=== PATIENT | female | born 1945 | race Caucasian/White ===

== ENCOUNTER 2019-12-10 10:01 | Outpatient (CLI) | payer MEDICARE, OTHER, SELFPAY ==
--- NOTE | 2019-12-10 10:08 | MM_ITS ---
WS: [id number] BILATERAL SCREENING DIGITAL MAMMOGRAM WITH CAD HISTORY: SCREENING COMPARISON: 11/02/2018, 04/10/2017 and 02/29/2016 Bilateral CC and MLO views submitted. Computer aided detection analyzed. Breast composition: There are scattered areas of fibroglandular density. No suspicious masses, microc alcifications or architectural distortion. Stable asymmetry in the central LEFT breast over multiple prior examinations. Benign calcifications. MM/[id number] IMPRESSION: BI-RADS: 2-Benign FOLLOW UP: 1 Year Follow-up
== END 2019-12-10 10:02 | disposition home or self-care (01) ==
LOC: RADSHAW 10:07
PROVIDERS: Family Provider Nurse Practitioner Family; Visit Provider Nurse Practitioner Family
DX: Z12.31 Encounter for screening mammogram for malignant neoplasm of breast (principal)
CPT/HCPCS: 77067

== ENCOUNTER 2020-12-15 14:59 | Outpatient (CLI) | payer MEDICARE, OTHER, SELFPAY ==
--- NOTE | 2020-12-15 15:07 | MM_ITS ---
WS: [id number] BILATERAL SCREENING DIGITAL MAMMOGRAM WITH CAD HISTORY: SCREENING COMPARISON: 12/10/2019, 11/02/2018 and 04/10/2017. Bilateral CC and MLO views submitted. Computer aided detection analyzed. Breast composition: The breasts are heterogeneously dense, which may obscure small masses. No suspici ous masses, microcalcifications or architectural distortion. There is an asymmetry in the central LEF T breast seen best on the CC projection posteriorly. 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 MM/[place] [id number] IMPRESSION: BI-RADS: 2-Benign FOLLOW UP: 1 Year Follow-up
== END 2020-12-15 15:00 | disposition home or self-care (01) ==
LOC: RADSHAW 15:06
PROVIDERS: PCP Nurse Practitioner Family; Visit Provider Nurse Practitioner Family
DX: Z12.31 Encounter for screening mammogram for malignant neoplasm of breast (principal)
CPT/HCPCS: 77067

== ENCOUNTER 2022-01-13 06:41 | Outpatient (CLI) | payer MEDICARE, OTHER, SELFPAY ==
--- NOTE | 2022-01-13 | US_ITS ---
WS: [id number] RIGHT UPPER QUADRANT ULTRASOUND HISTORY: ELEVATED LFT'S COMPARISON: 11/02/2018 Liver: 17.4 cm in length. Liver is mildly enlarged. Coarse echotexture throughout the liver. No mass or bile duct dilatation. Portal Vein: Normal hepatopetal flow with monophasic waveform. Gallbladder: Normally distended gallbladder with no stones or wall thickening. CBD: 0.5 cm Pancreas: Head and body are normal. Tail is obscured by bowel gas. Right kidney: 10.5 cm in length. Normal size kidney. Cortical cyst from the lower pole measures 1.1 x 1.4 x 1.5 cm. No solid mass. No obstruction. Aorta and IVC: Unremarkable abdominal aorta and IVC. No ascites. US/US abdomen limited [id number] IMPRESSION: 1. Normal gallbladder. 2. Mild hepatomegaly and mild hepatic steatosis. 3. No bile duct dilatation. 4. Simple cyst lower pole RIGHT kidney.
== END 2022-01-13 06:42 | disposition home or self-care (01) ==
LOC: RAD 06:42
PROVIDERS: PCP Nurse Practitioner Family; Visit Provider Nurse Practitioner Family
DX: R79.89 Other specified abnormal findings of blood chemistry (principal); R16.0 Hepatomegaly, not elsewhere classified; K76.0 Fatty (change of) liver, not elsewhere classified; N28.1 Cyst of kidney, acquired
CPT/HCPCS: 76705

== ENCOUNTER 2022-03-01 09:55 | Outpatient (CLI) | payer MEDICARE, OTHER, SELFPAY ==
--- NOTE | 2022-03-01 10:05 | MM_ITS ---
WS: [id number] BILATERAL 3D TOMOSYNTHESIS DIGITAL SCREENING MAMMOGRAPHY WITH CAD CLINICAL INFORMATION: SCREENING HISTORY: Screening mammogram. No current complaints. COMPARISON: December 15, 2020 TECHNIQUE: Bilateral CC and MLO views. FINDINGS: The breasts are composed of heterogeneous fibroglandular density tissue, which can limit the detectio n of small underlying mass lesions. Incidental punctate calcifications RIGHT breast. No suspicious ma ss, asymmetry, calcifications, or architectural distortion. No evidence of malignancy. MM/[place] [id number] IMPRESSION: BI-RADS: 2-Benign FOLLOW UP: 1 Year Follow-up Recommend return to annual screening mammography.
== END 2022-03-01 09:56 | disposition home or self-care (01) ==
LOC: RADSHAW 10:00
PROVIDERS: PCP Nurse Practitioner Family; Visit Provider Nurse Practitioner Family
DX: Z12.31 Encounter for screening mammogram for malignant neoplasm of breast (principal)
CPT/HCPCS: 77063; 77067

== ENCOUNTER 2022-10-25 07:56 | Outpatient (CLI) | payer MEDICARE, OTHER, SELFPAY ==
--- NOTE | 2022-10-25 08:08 | CT_ITS ---
WS: [id number] LDCT LUNG CANCER SCREENING TECHNIQUE: Noncontrast CT of the chest with coronal and sagittal reformatted images. CLINICAL INFORMATION: NICOTINE DEPENDENCE CIGARETTES COMPARISON: None. DLP: 65.23 mGy.cm DIvol: Mean CTDIvol: 1.60 (mGy) All CT scans at [facility] use at least one of these dose optimization techniques: automat ed exposure control; mA and/or kV adjustment per patient size (includes targeted exams where dose is matched to clinical indication); or iterative reconstruction. FINDINGS: Normal caliber thoracic aorta. No mediastinal or hilar lymphadenopathy. No axillary lymphadenopathy. Small hazy opacity LEFT upper lobe measuring 4 mm. No other suspicious pulmonary parenchymal opacitie s. Linear atelectasis both lower lobes and lingula. Adrenal glands are normal. Tiny esophageal hiatal hernia. . Hypertrophic changes thoracic spine. CT/CT lung screening [id number] IMPRESSION: LUNG-RADS: 2-Benign Appearance or Behavior FOLLOW UP: 12 Month: Continue annual screening with LDCT
== END 2022-10-25 07:57 | disposition home or self-care (01) ==
PROVIDERS: PCP Family Medicine; Visit Provider Family Medicine
DX: Z12.2 Encounter for screening for malignant neoplasm of respiratory organs (principal); F17.210 Nicotine dependence, cigarettes, uncomplicated
CPT/HCPCS: 71271

== ENCOUNTER 2023-06-29 14:22 | Outpatient (CLI) | payer MEDICARE, OTHER, SELFPAY ==
--- NOTE | 2023-06-29 14:30 | USCV_ITS ---
Cee Mays Age: 77 Gender: F : 1945 Exam Date: 06/29/2023 15:02 Ordering Phys: Sd Merida MD Technologist: Phyllis Kaufman Exam Location: [facility] – [place] Indication: Palpitations BP: 128 / 88 HR: 99 Rhythm: Sinus Technical Quality: Adequate MEASUREMENTS (Male / Female) Normal Values 2D ECHO LV Diastolic Diameter PLAX 4.1 cm 4.2 - 5.9 / 3.9 - 5.3 cm LV Systolic Diameter PLAX 1.9 cm IVS Diastolic Thickness 0.8 cm 0.6 - 1.0 / 0.6 - 0.9 cm IVS Systolic Thickness 1.6 cm LVPW Diastolic Thickness 1.1 cm 0.6 - 1.0 / 0.6 - 0.9 cm LVPW Systolic Thickness 1.7 cm LVOT Diameter 2.0 cm LV Ejection Fraction 2D Teich 85.2 % LV Ejection Fraction MOD 2C 66.0 % LV Ejection Fraction 2C AL 69.1 % LA Diameter 3.4 cm LA Width 2.9 cm LA Height 3.1 cm RA Width 1.8 cm RA Height 4.3 cm Aorta at Sinotubular Diameter 4.1 cm IVC Diameter 1.3 cm M-MODE Aortic Annulus Diameter 2.8 cm LA Ao Ratio MM 1.3 MV E Point Septal Separation 0.8 cm DOPPLER AV Peak Velocity 161.0 cm/s LVOT Peak Velocity 112.0 cm/s AV Area Cont Eq vti 2.6 cm squared AV Area Cont Eq pk 2.2 cm squared MV Peak Velocity 120.0 cm/s MV Area PHT 3.5 cm squared Mitral E to A Ratio 0.6 MV E' Velocity 37.5 cm/s Mitral E to MV E' Ratio 7.1 Mitral E to LV E' Lateral Ratio 5.1 Mitral E to LV E' Septal Ratio 11.7 TR Peak Velocity 96.0 cm/s TR Peak Gradient 3.7 mmHg Right Atrial Pressure 5.0 mmHg Pulmonary Artery Systolic Pressu 8.7 mmHg PV Peak Velocity 110.0 cm/s RV Acceleration Time 0.1 s RV Ejection Time 0.4 s RV AcT/ET 0.3 FINDINGS Left Ventricle Normal left ventricular size, systolic function and wall thickness, with no regional wall motion abnormalities. Left ventricular ejection fraction is estimated at 70 %. Grade I diastolic dysfunction (abnormal relaxation filling pattern), normal to mildly elevated filling pressures. Right Ventricle Normal right ventricular size and systolic function. RVSP could not be calculated due to incomplete tricuspid regurgitation velocity profile. Right Atrium Normal right atrial size. Left Atrium Normal left atrial size. Mitral Valve Structurally normal mitral valve. No mitral valve stenosis. Trace mitral valve regurgitation. Aortic Valve Structurally normal trileaflet aortic valve. No aortic valve stenosis. No aortic valve regurgitation. Tricuspid Valve Structurally normal tricuspid valve. No tricuspid valve stenosis. Trace tricuspid valve regurgitation. Pulmonic Valve Structurally normal pulmonic valve. No pulmonary valve stenosis. Trace pulmonary valve regurgitation. Pericardium No pericardial effusion. Aorta Dilated aortic root measured at 41 mm and ascending aorta measured at 44 mm IVC Normal IVC dimension with >50% respiratory change of the inferior vena cava. CONCLUSIONS 1. Normal left ventricular size, systolic function and wall thickness, with no regional wall motion abnormalities. Left ventricular ejection fraction is estimated at 70 %. Grade I diastolic dysfunction (abnormal relaxation filling pattern), normal to mildly elevated filling pressures. 2. Dilated aortic root measured at 41 mm and ascending aorta measured at 44 mm. 3. No prior similar studies to compare. Yuliya López MD (Electronically Signed) Final Date: 29 June 2023 15:51 S
== END 2023-06-29 14:23 | disposition home or self-care (01) ==
PROVIDERS: PCP Family Medicine; Visit Provider Family Medicine
DX: I77.819 Aortic ectasia, unspecified site (principal); R00.2 Palpitations
CPT/HCPCS: 93306

== ENCOUNTER 2024-07-25 11:50 | Outpatient (CLI) | payer MEDICARE, OTHER, SELFPAY ==
--- NOTE | 2024-07-25 11:53 | MM_ITS ---
WS: [id number] VIEWS: MLO and CC views both breasts. 3D digital tomosynthesis is also included in this exam. Comparison made with prior exam of 02/29/2016, 04/10/2017, 11/02/2018, 12/10/2019, 12/15/2020, 03/01/2022,. Findings: There was no sign of mass, architectural distortion or suspicious calcification in either breast. The breasts are extremely dense which lowers the sensitivity of mammography for this patient. MM/[place] [id number] Impression: BI-RADS: 2-Benign finding. FOLLOW-UP: 1 Year Follow-up This mammogram was also analyzed by the Computer Aided Detection System R2 Imag e Boring Mill Operator.
== END 2024-07-25 11:51 | disposition home or self-care (01) ==
LOC: RAD 11:50
PROVIDERS: PCP Family Medicine; Visit Provider Family Medicine
DX: Z12.31 Encounter for screening mammogram for malignant neoplasm of breast (principal); R92.30 Dense breasts, unspecified
CPT/HCPCS: 77063; 77067

== ENCOUNTER 2025-04-26 19:43 | Emergency (ER) | payer MEDICARE, OTHER, SELFPAY ==
[2025-04-26 19:49] VITALS: BP 109/68; PULSE 78; RESP 17; TEMP 36.4; O2SAT 93; BMI 31.1
--- NOTE | 2025-04-27 00:25 | ED_ITS ---
HPI - Extremity Problem General: Chief complaint: Extremity Problem,Nontraumatic Stated complaint: L leg hurt can't walk on it Time Seen by Provider: 04/26/25 22:50 History of Present Illness: 79-year-old female patient presents to [facility] emergency department with right lower extremity pain and swelling. Patient states has been going on for a few days. Patient denies any chest pain or shortness of breath. Patient denies any fever. Patient denies any trauma or injury. Patient denies any history of blood clots. Patient is not anticoagulated. Related Data Previous Rx's ?Medication ?Instructions ?Recorded tizanidine 2 mg tablet 2 mg PO Q8H #20 tabs 5 Allergies Allergy/AdvReac Type Severity Reaction Status Date / Time No Known Allergies Allergy Unverified 07/13/23 12:34 Review of Systems General: Reports: 10 or more systems reviewed and unremarkable except in HPI and below Physical Exam Const: COMMON NORMALS: no acute distress, patient oriented x3, healthy appearing and well nourished GENERAL APPEARANCE: cooperative, comfortable, well kempt and well developed; not ill appearing ORIENTATION/CONSCIOUSNESS: Yes awake Resp: COMMON NORMALS: normal respiratory effort, No retractions, No use of accessory muscles and clear to auscultation bilaterally EFFORT & INSPECTION: Yes able to speak in complete sentences AUSCULTATION: clear to auscultation bilaterally Cardio: COMMON NORMALS: regular rate and regular rhythm RATE: regular rate RHYTHM: regular rhythm Extremity: COMMON NORMALS: normal to inspection, full ROM and capillary refill normal GENERAL: Yes normal exam except as noted Neuro: COMMON NORMALS: patient oriented x3, CN's II-XII intact bilaterally, moves all extremities, no focal motor deficits, no sensory deficits noted, deep tendon reflexes 2+ bilaterally and gait normal Psych: COMMON NORMALS: mental status grossly normal, Normal thought process present, cooperative, normal affect, speech normal, activity/motor behavior normal, denies hallucinations, denies homicidal ideation and denies suicidal ideation APPEARANCE: Yes grossly normal and Yes well kempt ATTITUDE: Yes calm ACTIVITY/MOTOR BEHAVIOR: Yes appropriate eye contact SPEECH: Yes normal speech THOUGHT PROCESS: Normal thought process present THOUGHT CONTENT: Yes Normal thought content present ATTENTION/CONCENTRATION: Yes attention grossly intact MEMORY/COGNITION: Yes memory grossly intact INSIGHT: Good insight present (Psych) JUDGEMENT: Good judgement present (Psych) Skin: COMMON NORMALS: no rashes or lesions noted, no wounds, turgor normal, no jaundice, no petechiae and no mottling GENERAL SKIN EXAM: no rashes or lesions noted and turgor normal Course Vital Signs: Vital signs: Vital Signs Temperature 97.6 F 04/26/25 19:49 Pulse Rate 78 04/26/25 19:49 Respiratory Rate 17 04/26/25 19:49 Blood Pressure 109/68 04/26/25 19:49 Pulse Oximetry 93 04/26/25 19:49 Oxygen Delivery Me thod Room Air 04/26/25 19:49 MDM - Extremity (Nontraumatic) Medical Decision Making Ultrasound pending at this time. Report given to Dr. Cain. Dr. Cain will assume care of patient at this time.US negative for DVT. Pt states it is more of cramping and would like a muscle relaxer. Pt is NVI distally. Pt is able to ambulate without assistance. Pt advised of home care, return precautions and follow up. XR interpretation done by ED provider, pending radiology final review Discharge Plan Discharge Patient Disposition: Home Clinical Impression: Calf pain Qualifiers: Laterality: unspecified laterality Qualified Code(s): M79.669 - Pain in unspecified lower leg Condition: Stable Prescriptions: New tizanidine 2 mg tablet 2 mg PO Q8H Qty: 20 0RF Discharge Orders: Discharge ED (Routine); Ordered 04/27/25 Ordered By: Arlin Sen Referrals: Sd Merida MD [Primary Care Provider, Family Practice] Discharge Diet: Advance as tolerated Discharge Activity: Increase activity as tolerated Patient Instructions: Muscle Cramp (ED), Opioid Safety, Pain Management Activity Restrictions/Additional Instructions: Take meds as prescribed Please do not drive or operate heavy machinery will taking Tizanadine. Return to ER with any worsening of symptoms or concerns Follow up with PCP Print Language: Wallisian Coding Level of Care Code ED Medical Physics Researcher for Andrew Hernandez
--- NOTE | 2025-04-27 23:08 | USR_ITS ---
PROCEDURE INFORMATION: Exam: US Duplex Left Lower Extremity Veins, Limited Exam date and time: 04/27/2025 12:09 AM Age: 79 years old Clinical indication: Swelling (edema) of limb; Lower extremity, left; Additional info: Pain and swelling TECHNIQUE: Imaging protocol: Real-time duplex ultrasound of the left extremity with 2-D braden scale, color Doppler flow and spectral waveform analysis including responses to compression and other maneuvers (when performed) with image documentation. Limited exam focused on the left lower extremity veins. COMPARISON: US pelvic complete* [id number] 11/02/2018 7:43 AM FINDINGS: Left deep veins: Unremarkable. The common femoral, femoral, proximal profunda femoral and popliteal veins are patent without thrombus. Normal Doppler waveforms. Normal compressibility and/or augmentation response. Superficial veins: Greater saphenous vein at the saphenofemoral junction is patent without thrombus. Soft tissues: Unremarkable. US/[place] [id number] IMPRESSION: No evidence of deep vein thrombosis.
== END 2025-04-27 00:46 | disposition home or self-care (01) ==
PROVIDERS: Emergency Provider Registered Nurse; PCP Family Medicine
DX: M79.605 Pain in left leg (principal); R60.0 Localized edema
CPT/HCPCS: 93971; 99284

== ENCOUNTER 2025-05-22 09:32 | Outpatient (CLI) | payer MEDICARE, OTHER, SELFPAY ==
--- NOTE | 2025-05-22 09:34 | MR_ITS ---
WS: [id number] MRI LEFT KNEE NONCONTRAST TECHNIQUE: Axial PD, coronal PD fat sat, coronal PD, sagittal PD, and sagittal PD fat-sat images obtained. CLINICAL INFORMATION: PAIN IN LEFT KNEE COMPARISON: None. FINDINGS: Advanced tricompartment arthritis. Moderate suprapatellar effusion. Advanced chondromalacia patella. Small lobulated popliteal cyst measuring 4.1 x 1.0 cm. ACL and PCL appear intact. Distal quadriceps and patella tendons appear intact. Chronic thinning of the medial and lateral meniscus. Peripheral extrusion of the medial meniscus. Horizontal tear involving the medial meniscus at the peripheral margin Grade III-IV chondromalacia involving the medial and lateral joint compartments. Normal fibular head. Normal popliteus. Soft tissue edema about the joint line. Grade 1-2 injury involving the medial collateral ligament with fluid and edema along the superficial and deep fibers. Lateral collateral ligament appears intact. MR/MR knee LT wo con* [id number] IMPRESSION: 1. Advanced tricompartmental arthritis with a moderate joint effusion. 2. Advanced chondromalacia patella. 3. Small lobulated popliteal cyst. 4. Grade 1-2 injury medial collateral ligament. 5. Horizontal tear involving the medial meniscus extending to the peripheral m argin with mild peripheral extrusion of the medial meniscus. 6. ACL and PCL appear intact. Outbridge grading: grade IV: full-thickness cartilage loss with underlying bone reactive changes
== END 2025-05-22 09:33 | disposition home or self-care (01) ==
PROVIDERS: PCP Family Medicine; Visit Provider Family Medicine
DX: M13.862 Other specified arthritis, left knee (principal); M22.42 Chondromalacia patellae, left knee; S83.222A Peripheral tear of medial meniscus, current injury, left knee, initial encounter; X58.XXXA Exposure to other specified factors, initial encounter; M94.8X6 Other specified disorders of cartilage, lower leg; M71.22 Synovial cyst of popliteal space [Baker], left knee
CPT/HCPCS: 73721

== ENCOUNTER → 2025-06-09 14:37 | Outpatient (BNVA) | payer MEDICARE, OTHER, SELFPAY | PROVIDERS: PCP Family Medicine; Visit Provider Orthopaedic Surgery | DX: M17.12 Unilateral primary osteoarthritis, left knee (principal) | CPT/HCPCS: 20610; 99204; J3301; J3490; J9999 ==

== ENCOUNTER → 2025-07-14 08:12 | Outpatient (BNVA) | payer MEDICARE, OTHER, SELFPAY | PROVIDERS: PCP Family Medicine; Visit Provider Orthopaedic Surgery | DX: M17.12 Unilateral primary osteoarthritis, left knee (principal); R73.09 Other abnormal glucose; Z01.818 Encounter for other preprocedural examination | CPT/HCPCS: 36415; 80053; 81001; 83036; 85025; 99213 ==

== ENCOUNTER → 2025-07-22 09:44 | Outpatient (BNVA) | payer MEDICARE, OTHER, SELFPAY | PROVIDERS: PCP Family Medicine; Visit Provider Family Medicine | DX: Z01.818 Encounter for other preprocedural examination (principal); R94.31 Abnormal electrocardiogram [ECG] [EKG] | CPT/HCPCS: 81003; 87077; 87086; 87184; 93005 ==

== ENCOUNTER → 2025-07-31 13:09 | Outpatient (BNVA) | payer MEDICARE, OTHER, SELFPAY | PROVIDERS: PCP Family Medicine; Visit Provider Family Medicine | DX: Z01.818 Encounter for other preprocedural examination (principal) | CPT/HCPCS: 81003 ==

== ENCOUNTER 2025-08-06 08:49 | Observation (INO) | payer MEDICARE, OTHER, SELFPAY ==
[2025-08-06] VITALS (20 sets, daily range): BP systolic 102–129; BP diastolic 60–79; PULSE 60–78; RESP 6–18; TEMP 36.2–36.8; O2SAT 91–100; BMI 32.5
--- NOTE | 2025-08-06 06:23 | ANES.PREANE2 ---
Pre-Anesthetic Assessment Height/Weight: Height 5 ft 1 in Weight 172 lb Temp Pulse Resp BP Pulse Ox O2 Del Method 97.5 F L 78 17 107/67 97 Room Air 08/06/25 06:01 08/06/25 06:01 08/06/25 06:01 08/06/25 06:01 08/06/25 06:01 08/06/25 06:01 Preop Diagnosis: Knee arthritis Operation Date: 08/06/25 07:00 Proposed Procedures p LEFT Total Knee Arthroplasty(Left) - Angelo Prince MD Was Beta Rohan taken within 24 hours: N/A Was Clonidine taken within 24 hours: N/A Last intake: Intake Last Liquid Date 08/05/25 Last Liquid Time 12:00 Last Solid Date 08/05/25 Last Solid Time 12:00 Social No alcohol and No tobacco Exam alert, oriented x 3, clear to auscultation bilaterally and regular rate & rhythm Airway Submandibular: within normal limits Cervical ROM: within normal limits Mallampati: Class III Dentition: full Anesthetic Plan ASA status: 3 Anesthesia: General Other: No prior issues with anesthesia N.p.o. since yesterday evening History of hypertension on losartan GERD, controlled with omeprazole Echo 2022 showing EF of 70% with mildly dilated aortic root EKG sinus rhythm with possible old anterior ND Labs 07/14/2025 reviewed and acceptable for procedure Plan for general anesthesia with peripheral nerve block Medications/Allergies Home Medications ?Medication ?Instructions ?Recorded ?Confirmed ?Last Taken ?Type aspirin 81 mg tablet 81 mg PO DAILY 06/09/25 08/05/25 07/31/25 History blood sugar diagnostic (FreeStyle #10 ea 06/09/25 08/05/25 Unknown History Lite Strips) coQ10 (ubiquinol) 100 mg capsule 100 mg PO QPM 06/09/25 08/05/25 08/05/25 History (Qunol Jeremiah CoQ10) fluoxetine 20 mg capsule 20 mg PO DAILY 06/09/25 08/05/25 Unknown History levothyroxine 75 mcg tablet 75 mcg PO DAILY 06/09/25 08/05/25 08/05/25 History losartan 25 mg tablet 25 mg PO DAILY 06/09/25 08/05/25 08/05/25 History omeprazole 20 mg capsule,delayed 20 mg PO DAILY 06/09/25 08/05/25 08/05/25 History release pravastatin 80 mg tablet 80 mg PO QPM 06/09/25 08/05/25 08/05/25 History metformin 1,000 mg tablet 1,000 mg PO BID 07/22/25 08/05/25 08/05/25 History Allergies Allergy/AdvReac Type Severity Reaction Status Date / Time No Known Allergies Allergy Unverified 07/22/25 10:07 Current Medications Generic Name Dose Route Start Last Admin Trade Name Freq PRN Reason Stop Dose Admin Sodium Chloride 1,000 mls @ 30 mls/hr 08/06/25 06:00 08/06/25 06:10 Sodium Chloride 0.9% IV 08/07/25 05:59 30 mls/hr .Q24H ANH Administration PFSH Anesthesia Social History Smoking and tobacco/nicotine status: never used tobacco/nicotine Data Anesthesia Cardiac Studies: Echocardiogram 06/29/23 Cardiac Event Monitor 07/13/23
--- NOTE | 2025-08-06 06:51 | W.PM.OPSUD ---
Surgery/Procedure H&P Update DATE OF PROCEDURE: August 06, 2025 DATE H&P PERFORMED: 07/22/25 H&P UPDATE INFORMATION: I have reviewed H&P completed within last 30 days, I have examined patient prior to procedure and No changes to prior documentation PREOP DIAGNOSIS: Knee arthritis PLANNED PROCEDURE: Operation Date: 08/06/25 07:00 Proposed Procedures p LEFT Total Knee Arthroplasty(Left) - Angelo Prince MD
[2025-08-06] MEDS: ceFAZolin 2,000 mg SDV 2000 MG IVP (06:53)
[2025-08-06] MEDS: tranexamic acid 1,000 mg/10mL SDV 1000 MG IV (07:12)
--- NOTE | 2025-08-06 08:23 | XR_ITS ---
WS: [id number] Left knee, AP and lateral views, 08/06/2025 Clinical Data: Left total knee arthroplasty Comparison: None. Findings: The knee arthroplasty components are in good position. There is postoperative air surrounding the knee joint. There are anterior surgical trent.. XR/XR knee LT 1-2V [id number] Impression: Left knee arthroplasty.
--- NOTE | 2025-08-06 08:30 | PM.OP ---
Operative Report Date of procedure: August 06, 2025 Surgeon: Angelo Prince MD Procedure: Preoperative diagnosis: End-stage degenerative joint disease left knee Postoperative diagnosis: Same Procedure: Left total knee arthroplasty Surgeon: Angelo Houston MD Wallpaperer: LEANNA Andrade's assistance was necessary for positioning the patient, life science research assistant during the procedure, wound closure, placement of dressings and transported the patient. Anesthesia: General EBL: 30 cc Tourniquet time: 32 minutes at 250 mmHg Indications: Cee is a 80-year-old white female was seen in orthopedic clinics after having a workup by her primary care for debilitating left knee pain. She has previously had an MRI demonstrating significant osteoarthritic changes throughout the knee with some chondral bone changes. She failed conservative measures including corticosteroid injection by myself and continued pain problems and difficulties. Therefore after lengthy discussion she elected to proceed with surgical intervention that being a left total knee arthroplasty. All risk, benefits, and treatment alternatives were had been discussed and she was agreeable to proceed with left total knee arthroplasty. Procedure: After obtaining her consent patient taken the op room placed in the op table supine position general anesthetic administered. Once good anesthesia achieved pneumatic cuffs placed on proximal left thigh left leg was prepped and draped usual fashion. After surgical timeout and gravity exsanguination pneumatic cuff inflated 250 mmHg. Knee was held in 90 degrees position of foot holding device. Longitudinal incision made from tibial tubercle to superior pole the patella. Sharp dissection taken on down subcutaneous tissues. Electrocautery used for hemostasis. Knee was opened up along medial parapatellar incision line. Excess soft tissue was sharply debrided including fat pad anterior horns of the menisci and the ACL. Capsule was stripped from the superior medial aspect of the tibia to expose the knee better. Leg was put out in full extension patella was then debrided about its periphery with electrocautery. Knee Was reamed down to 14 mm thickness with patella reaming mL. Patella was then placed in lateral gutter knee flexed back to 90 degrees. Appropriate retractors placed including PCL retractor to expose the proximal tibia. Tibial cutting guide was position with appropriate posterior slope and a 2 mm cut off the most affected side that being medial. This then pinned in place. Small small osteotome driven anterior to the PCL to protect it during cutting the tibial plateau. Sagittal saw was then used to make the tibial cut. Box cut was made around the insertion of the PCL a small osteotome. And tibial plateau cut was removed piecemeal. PCL large retractor was removed and a drill holes placed through the distal femur just anterior to the intercondylar notch. Guide mary ann was placed up to interventionally canal of the femur and distal femoral cutting block was positioned with appropriate rotation and pinned in place. Guidewires removed distal cut was made with a sagittal saw without any difficulties. Distal femur was then sized to a size 7 tibial cutting block. Appropriate drill holes placed in the distal femur. Size 7 distal femur cutting block was then placed and impacted. Anterior posterior and chamfer cuts were made without any difficulties. PCL retractor was replaced to expose the proximal tibia again. Excess soft tissue removed including menisci and left lower fat pad. Proximal tibia sized to size EE persona tibial tray. Was positioned with an external guide mary ann and pinned in place. Trial tibial spacer was placed at being a size 10. Then a trial femoral component was impacted on the distal femur. Knee was put in range of motion and full extension full flexion and good stability throughout. Patella was then sized to a size 29 patellar button and appropriate drill guide was placed in drill holes made. Trial patellar button was placed on the posterior patella and knee was ranged through range of motion found to be stable with good patellar tracking. Patella trial was removed. Drill holes were placed in the distal femoral trial for future post of the permanent component. Distal femur was removed. Tibial spacer was removed. Appropriate drill holes placed in the size E tray for future post of the permanent component. Central drill hole and then punch was used to prepare for the post of the tibial tray. All components were then removed this time. Knee was washed with copious amounts of pulse lavage irrigation. Bone plug was placed in the distal femoral drill hole from the original guide. Once joint was clear and dry permanent size E tibial tray was placed and impacted. Permanent size 7 femoral component was placed and impacted. A size 10 tibial spacer was then placed and locked in place. This being the permanent spacer. Knee put through range of motion and was stable with full extension and full flexion. Subsequently a size 29 patellar button was impacted in posterior patella. Knee again was put through range of motion without to be stable. Pneumatic cuff is deflated after 32 minutes total tourniquet time. Knee was then washed again with copious amounts of pulse Avage irrigation. Electrocautery used for hemostasis. Knee was placed on the knee bump for slight flexion. Extensor mechanism repaired with #1 Vicryl [id number] sutures. Subcutaneous is repaired 0 Vicryl interrupted sutures. Skin was closed with skin trent. Wounds were cleaned and dry dressed with Xeroform gauze sterile gauze dressing ABDs Curlex wrap and Duc wrap for compression. Patient was awakened transferred to cover room stable condition
--- NOTE | 2025-08-06 09:37 | ANE.PACU2 ---
Inpatient post-anesthesia follow up: Airway intact: Yes Vital signs: Temperature 97.7 F Pulse Rate 70 Respiratory Rate 14 Blood Pressure 119/79 Pulse Oximetry 93 Oxygen Delivery Me thod Nasal Cannula Oxygen Flow Rate 2 Fraction of Inspir ed Oxygen Hydration adequate: Yes Nausea and vomiting: No Pain level: 1 Mental status: Baseline
[2025-08-06] MEDS: HYDROcodone-acetaminophen 5-325 mg Tablet 1 TAB PO ×3 (10:22→22:41)
[2025-08-06] MEDS: sennosides-docusate Tablet 2 TAB PO ×2 (10:23→17:03)
[2025-08-06] MEDS: multivitamin therapeutic Tablet 1 TAB PO (10:23)
[2025-08-06] MEDS: chlorhexidine gluconate 0.12% Btl 473 mL 30 ML MUCOUS MEM ×4 (10:25→21:31)
[2025-08-06] MEDS: ceFAZolin 2,000 MG in sodium chloride 0.9% (100 ml) 100 ML 200 MG IV ×2 (10:25→17:06)
[2025-08-06] MEDS: mupirocin oint 22 gm 1 APPLIC NASAL (10:26)
[2025-08-06 11:55] LABS: Hematocrit 35.2 % (36-47); Hemoglobin 10.80 g/dL (11.27-16.99); Mean Corpuscular HGB Conc 30.7 g/dL (30-55); Mean Corpuscular Hemoglobin 30.3 pg (27-33); Mean Corpuscular Volume 98.6 fl (85-98); Nucleated Red Blood Cells % 0 %; Platelet Count 214 10^3/cmm (157-399); Red Blood Count 3.57 10^6/uL (3.85-5.65); White Blood Count 8.76 10^3/uL (3.29-11.43)
[2025-08-06] MEDS: morphine 4 mg/mL SDV 1 mL IVP (11:59)
[2025-08-06 12:11] LABS: Anion Gap 15.3 (5-19); Blood Urea Nitrogen 20 mg/dL (8-23); Calcium 7.6 mg/dL (8.5-10.5); Carbon Dioxide 24 mmol/L (22-29); Chloride 102 mmol/L (98-107); Creatinine Clr Calc Pharmacy 48.7046; Glucose 173 mg/dL (65-115); Osmolality Calculated 291 mOsm/kg (285-295); Potassium 4.3 mmol/L (3.5-5.1); Sodium 137 mmol/L (136-145)
[2025-08-06] MEDS: ondansetron 2 mg/ML SDV 2 mL 4 MG IVP (17:03)
[2025-08-06] MEDS: metoclopramide 5 mg/mL SDV 2 mL 10 MG IV (18:30)
[2025-08-07] VITALS: BP 105/67; PULSE 65; RESP 18; TEMP 36.3; O2SAT 90
[2025-08-07] MEDS: ceFAZolin 2,000 MG in sodium chloride 0.9% (100 ml) 100 ML 200 MG IV (01:50)
[2025-08-07] MEDS: HYDROcodone-acetaminophen 5-325 mg Tablet 1 TAB PO ×3 (02:42→21:42)
[2025-08-07 04:00] VITALS: BP 121/70; PULSE 63; RESP 16; TEMP 36.3; O2SAT 95
[2025-08-07] MEDS: ondansetron 2 mg/ML SDV 2 mL 4 MG IVP (06:48)
[2025-08-07 07:17] VITALS: BP 137/79; PULSE 63; RESP 16; TEMP 36.9; O2SAT 91
[2025-08-07] MEDS: sennosides-docusate Tablet 2 TAB PO ×2 (09:15→18:01)
[2025-08-07] MEDS: multivitamin therapeutic Tablet 1 TAB PO (09:15)
[2025-08-07 11:31] VITALS: BP 121/74; PULSE 68; RESP 17; TEMP 36.4; O2SAT 92
--- NOTE | 2025-08-07 13:08 | P.PN_ITS ---
Subjective 2 Subjective: Patient with total knee arthroplasty of the left yesterday. She is progressing slowly with physical therapy today. She has not done very well steps or longer distances. Still having some nausea at this time. Medications: Reviewed: Yes Vitals/I&O/Wt Last Vital Signs Temp 97.6 F 08/07/25 11:31 Pulse 68 08/07/25 11:31 Resp 17 08/07/25 11:31 BP 121/74 08/07/25 11:31 Pulse Ox 92 08/07/25 11:31 O2 Del Method Room Air 08/07/25 11:31 O2 Flow Rate 2 08/06/25 10:19 08/06/25 08/07/25 08/07/25 22:59 06:59 14:59 Intake Total 1120 / 2380 100 / 2480 1480 / 1480 Output Total 350 / 380 300 / 680 Balance 770 / 2000 -200 / 1800 1480 / 1480 Weight last 48 hrs Weight 170 lb Weight 172 lb Weight 172 lb Physical Exam 2 Narrative: On exam today she is laying in bed. Dressings are clear. She is nearly reaching full extension but cannot do a straight leg raise. She is neurovasc intact distally Urinary Catheter Management: Roldan Latex Free: Cath Placed During This Visit: yes, but has since been removed by the nurse Reason for Continuing Indwelling Catheter: Required Immobilization for Trauma or Surgery or Anesthesia Urinary Catheter Date of Insertion: 08/06/25 Urinary Catheter Time of Insertion: 07:20 Date Urinary Catheter Removed: 08/07/25 Time Urinary Catheter Discontinued: 06:01 Data 08/06/25 11:47 08/06/25 11:47 A&P Assessment and plan 1. Status post total left knee replacement: Patient 1 day status post left total knee arthroplasty. Progressing slowly with physical therapy. Plan: Plan at this time is patient needs to continue also for the therapy to make her more stable to return to home. She still needs control of her nausea as well as control of her pain. PDMP PDMP Reviewed: Not Reviewed Attestations 2 Medical Necessity Statement*: Patient needs further hospitalization for pain control, assistance with daily living activities. Control of nausea Coding Level of Care Code 22838 Diagnoses Status post total left knee replacement Z96.652 Laterality: left
[2025-08-07 16:00] VITALS: BP 126/74; PULSE 69; RESP 16; TEMP 37.2; O2SAT 92
[2025-08-07 20:00] VITALS: BP 133/67; PULSE 78; RESP 16; TEMP 36.4; O2SAT 90
[2025-08-08] VITALS: BP 122/81; PULSE 76; RESP 16; TEMP 36.6; O2SAT 90
[2025-08-08 04:00] VITALS: BP 130/76; PULSE 75; RESP 16; TEMP 36.7; O2SAT 90
[2025-08-08 07:47] VITALS: BP 109/61; PULSE 96; RESP 20; TEMP 36.6; O2SAT 91
[2025-08-08] MEDS: multivitamin therapeutic Tablet 1 TAB PO (08:26)
[2025-08-08] MEDS: HYDROcodone-acetaminophen 5-325 mg Tablet 1 TAB PO (08:26)
[2025-08-08] MEDS: sennosides-docusate Tablet 2 TAB PO (08:26)
[2025-08-08 11:39] VITALS: BP 118/75; PULSE 77; RESP 16; TEMP 36.4; O2SAT 97
[2025-08-08 16:00] VITALS: BP 123/70; PULSE 77; RESP 17; TEMP 36.7; O2SAT 92
--- NOTE | 2025-08-08 16:04 | PC.OT ---
Pt declines OT treatment today stating that she worked hard in PT today. Pt is educated in differences between PT and OT. Pt declines OT treatment. Will attempt again at later time.
--- NOTE | 2025-08-08 16:05 | PC.NURSE ---
Discharge Note Patient discharged to home via private vehicle accompanied by son and daughter in law. Discharge instructions reviewed with patient and/or equal opportunity representative. Mobile pharmacy medications and/or prescriptions provided. Belongings/home medications returned.
[2025-08-08 16:06] VITALS: BP 123/70; PULSE 77; RESP 17; TEMP 36.7; O2SAT 92
--- NOTE | 2025-08-15 08:29 | P.DS_ITS ---
Discharge Providers Date of Admission: 08/06/25 08:49 Date of Discharge: August 08, 2025 Attending Provider at Admission: Angelo Prince MD Attending Provider at Discharge: Angelo Prince MD Primary Care Provider: Sd Merida MD Diagnoses at Discharge Discharge Diagnosis 1. Status post total left knee replacement: Details from hospital stay: Patient was admitted on 08/06/2025 and underwent left total knee arthroplasty. Patient then admitted for pain control and physical therapy after this. Reason for Visit Reason for Visit: M17.12 Brief History: Cee is a 80-year-old white female who presented to the orthopedic clinics with a painful left knee. Subsequently she failed all conservative measures. X-rays demonstrated degenerative changes within the knee. Therefore at this time patient was offered a total knee arthroplasty. All risk benefits treatment alternatives were discussed with her and she is agreeable to this at this time. Hospital Course Hospital Course Patient admitted on 08/06/2025 and underwent above-stated procedure. She tolerated this well. Over the course of the next 2 days she required pain medications for pain control. She also required physical therapy to get her up and moving until she was deemed safe enough to be discharged home. No other medical events occurred Physical Exam Narrative: At the time of discharge she is awake alert up to chair. Dressings are clear of her left knee. She is having better range of motion with it and able to ambulate at this time. Urinary Catheter Management: Roldan Latex Free: Cath Placed During This Visit: yes, but has since been removed by the nurse Reason for Continuing Indwelling Catheter: Required Immobilization for Trauma or Surgery or Anesthesia Urinary Catheter Date of Insertion: 08/06/25 Urinary Catheter Time of Insertion: 07:20 Date Urinary Catheter Removed: 08/07/25 Time Urinary Catheter Discontinued: 06:01 Discharge Data Studies Completed and Pending Completed Studies During Hospitalization Category Date Time Status XR knee LT 1-2V 32607 Urgent Exams 08/06/25 08:23 Completed Radiology Impressions Knee X-Ray 08/06/25 08:23 Impression: Left knee arthroplasty. Laboratory Results WBC 8.76 10^3/uL (3.29-11.43) 08/06/25 11:47 RBC 3.57 10^6/uL (3.85-5.65) L 08/06/25 11:47 Hgb 10.80 g/dL (11.27-16.99) L 08/06/25 11:47 Hct 35.2 % (36-47) L 08/06/25 11:47 MCV 98.6 fl (85-98) H 08/06/25 11:47 MCH 30.3 pg (27-33) 08/06/25 11:47 MCHC 30.7 g/dL (30-55) 08/06/25 11:47 RDW 14.9 % (12.1-15.1) 08/06/25 11:47 Plt Count 214 10^3/cmm (157-399) 08/06/25 11:47 MPV 9.4 fL (7.4-10.4) 08/06/25 11:47 Neut % (Auto) 90.8 % 08/06/25 11:47 Lymph % (Auto) 6.7 % 08/06/25 11:47 [place] % (Auto) 1.7 % 08/06/25 11:47 Eos % (Auto) 0.1 % 08/06/25 11:47 Baso % (Auto) 0.2 % 08/06/25 11:47 Neut # (Auto) 7.95 10^3/uL (1.8-7.7) H 08/06/25 11:47 Lymph # (Auto) 0.6 10^3/uL (0.8-4.8) L 08/06/25 11:47 [place] # (Auto) 0.2 10^3/uL (0.2-0.9) 08/06/25 11:47 Eos # (Auto) 0.0 10^3/uL (0.0-0.8) 08/06/25 11:47 Baso # (Auto) 0.0 10^3/uL (0.0-0.1) 08/06/25 11:47 Nucleated RBC % (auto) 0 % 08/06/25 11:47 Nucleated RBCs # 0.0 /100WBC 08/06/25 11:47 Sodium 137 mmol/L (136-145) 08/06/25 11:47 Potassium 4.3 mmol/L (3.5-5.1) 08/06/25 11:47 Chloride 102 mmol/L (98-107) 08/06/25 11:47 Carbon Dioxide 24 mmol/L (22-29) 08/06/25 11:47 Anion Gap 15.3 (5-19) 08/06/25 11:47 BUN 20 mg/dL (8-23) 08/06/25 11:47 Creatinine 0.9 mg/dL (0.5-0.9) 08/06/25 11:47 GFR Calculation Not Reportable 08/06/25 11:47 Glucose 173 mg/dL (65-115) H 08/06/25 11:47 POC Glucose 149 mg/dL (70-110) H 08/08/25 10:38 Calculated Osmolality 291 mOsm/kg (285-295) 08/06/25 11:47 Calcium 7.6 mg/dL (8.5-10.5) L 08/06/25 11:47 Procedures Performed Left total knee arthroplasty Vitals Last Vital Signs Temp 98.0 F 08/08/25 16:06 Pulse 77 08/08/25 16:06 Resp 17 08/08/25 16:06 BP 123/70 08/08/25 16:06 Pulse Ox 92 08/08/25 16:06 O2 Del Method Room Air 08/08/25 16:00 O2 Flow Rate 1 08/07/25 20:00 Discharge Plan Discharge Patient Disposition: Home Health Service Condition: Stable Prescriptions: New hydrocodone-acetaminophen 5-325 mg tablet 1 tab PO Q6H PRN (Reason: pain) Qty: 30 0RF Continued (DME) FreeStyle Lite Strips Strip See Rx Instructions .ROUTE .MEDSUPPLY Qty: 10 Rx Instructions: As directed levothyroxine 75 mcg tablet 75 mcg PO DAILY pravastatin 80 mg tablet 80 mg PO QPM losartan 25 mg tablet 25 mg PO DAILY omeprazole 20 mg capsule,delayed release(DR/EC) 20 mg PO DAILY aspirin 81 mg tablet 81 mg PO DAILY fluoxetine 20 mg capsule 20 mg PO DAILY coQ10 (ubiquinol) [Qunol Jeremiah CoQ10] 100 mg capsule 100 mg PO QPM metformin 1,000 mg tablet 1,000 mg PO BID Discharge Order = DC NOW: Discharge Order (Routine); Ordered 08/08/25 Ordered By: Angelo Prince Other Ambulatory Orders: Physical Therapy Eval and Treat Outpatient (Order) Timeframe: 3 Days Facility: [facility] - Location: Physical Therapy Ordered By: Angelo Prince Referrals: [facility] Outpatient Therapy [Outside] Angelo Prince MD [Physician, Orthopedics] - 2 weeks Referral Note: We have notified your physician's clinic of the need for a follow-up appointment to be scheduled. If you have not heard from them within the next 2 business days, please call them directly. Discharge Diet: Advance as tolerated Discharge Activity: Increase activity as tolerated Patient Instructions: Hydrocodone/Acetaminophen (By mouth), Acute Wound Care (DC), Total Knee Replacement (DC), Opioid Safety, Post Anesthesia Care, Patient Portal & Ana Laura Instructions Activity Restrictions/Additional Instructions: Ice and elevate knee as needed May change dressings in 3 to 4 days Cover wounds to shower May replace dressing with dry gauze and tape or Duc wrap Ambulate daily Discharge Attestations Time Spent in Discharge Care*: less than 30 min Quality Metrics Clinical Quality Measures [ No reported AMI, CVA or VTE this stay] Coding Level of Care Code Acute Code for Chg Fwd Diagnoses Status post total left knee replacement Z96.652 Laterality: left
== END 2025-08-08 16:13 | disposition home health service (06) ==
LOC: MEDSURG 08:49
PROVIDERS: Admitting Provider Orthopaedic Surgery; PCP Family Medicine; Visit Provider Orthopaedic Surgery
PROC: (CPT 27447; principal; 2025-08-06 07:00)
DX: M17.12 Unilateral primary osteoarthritis, left knee (principal); K21.9 Gastro-esophageal reflux disease without esophagitis; Z79.82 Long term (current) use of aspirin; Z79.84 Long term (current) use of oral hypoglycemic drugs; I10 Essential (primary) hypertension; E78.5 Hyperlipidemia, unspecified; E11.9 Type 2 diabetes mellitus without complications
CPT/HCPCS: 27447; 36415; 36416; 51702; 73560; 80048; 82962; 85025; 96372; 97110; 97116; 97161; 97166; 97530; A4216; C1776; G0378; J0131; J0690; J1100; J1815; J1885; J2270; J2405; J2704; J2765; J3010; J3490; J7030; J9999

== ENCOUNTER → 2025-08-28 09:10 | Outpatient (BNVA) | payer MEDICARE, OTHER, SELFPAY | PROVIDERS: PCP Family Medicine; Visit Provider Orthopaedic Surgery | DX: Z96.652 Presence of left artificial knee joint (principal) | CPT/HCPCS: 73560; 73565; 99024 ==

== ENCOUNTER 2025-09-25 08:53 | Outpatient (RCR) | payer MEDICARE, OTHER, SELFPAY | END 2025-09-26 23:59 | disposition home or self-care (01) | LOC: SPT 08:53 | PROVIDERS: PCP Family Medicine; Visit Provider Orthopaedic Surgery | DX: M25.562 Pain in left knee (principal); Z96.652 Presence of left artificial knee joint | CPT/HCPCS: 97161 ==

== ENCOUNTER 2025-09-27 05:00 | Outpatient (RCR) | payer MEDICARE, OTHER, SELFPAY | END 2025-10-26 23:59 | disposition home or self-care (01) | LOC: SPT 05:00 | PROVIDERS: PCP Family Medicine; Visit Provider Orthopaedic Surgery | DX: Z96.652 Presence of left artificial knee joint (principal) | CPT/HCPCS: 97110; 97140; 97530 ==

== ENCOUNTER 2025-10-27 05:00 | Outpatient (RCR) | payer MEDICARE, OTHER, SELFPAY | END 2025-11-26 23:59 | disposition home or self-care (01) | LOC: SPT 05:00 | PROVIDERS: PCP Family Medicine; Visit Provider Orthopaedic Surgery | DX: M17.12 Unilateral primary osteoarthritis, left knee (principal) | CPT/HCPCS: 97110 ==

== ENCOUNTER → 2025-10-28 08:18 | Outpatient (BNVA) | payer MEDICARE, OTHER, SELFPAY | PROVIDERS: PCP Family Medicine; Visit Provider Orthopaedic Surgery | DX: Z96.652 Presence of left artificial knee joint (principal) | CPT/HCPCS: 73560; 73565; 99024 ==